=== PATIENT | male | born 1960 | race Caucasian/White ===

== ENCOUNTER 2025-04-09 17:10 | Emergency (ER) | payer MEDICAID ==
[~2025-04-09] VITALS: Ht 182.9 cm; Wt 85.0 kg
[2025-04-09 17:26] VITALS: O2SAT 100
[2025-04-09] MEDS: TETANUS, DIPHTHERIA, PERTUSSIS VAC/PF 0.5ML (>10YR OLD) IM ONE (18:32)
[2025-04-09] MEDS: LIDOCAINE HCL/PF 1% 10 MG/ML 5ML VIAL INFIL ONE (18:40)
[2025-04-09] MEDS: BACITRACIN ZINC OINT UDPKT TOP ONE (18:40)
[2025-04-09] MEDS: IBUPROFEN 400MG TABLET PO ONE (18:40)
[2025-04-09] MEDS ORDERED: SULF1TAB48 MT (18:44)
[2025-04-09] MEDS ORDERED: CEPH500C2 MT (18:44)
[2025-04-09 18:55] VITALS: BP 135/89; PULSE 72; RESP 18; TEMP 36.4; O2SAT 99
== END 2025-04-09 19:07 | disposition home or self-care (01) ==
LOC: ER 17:10
DX: S81.011A Laceration without foreign body, right knee, initial encounter (principal); L03.115 Cellulitis of right lower limb; Z98.890 Other specified postprocedural states; Z79.899 Other long term (current) drug therapy; W26.8XXA Contact with other sharp object(s), not elsewhere classified, initial encounter; Y93.89 Activity, other specified; Y92.89 Other specified places as the place of occurrence of the external cause; Y99.8 Other external cause status
CPT/HCPCS: 90715; 12001; 90471; 99283; Z7610 ×2